=== PATIENT | male | born 1965 | race Caucasian/White ===

== ENCOUNTER 2016-09-07 | Emergency (ER) | payer OTHER | END 2016-09-07 15:50 | disposition left against medical advice (07) | DX: Z53.21 Procedure and treatment not carried out due to patient leaving prior to being seen by health care provider (principal) ==

== ENCOUNTER 2021-01-20 19:11 | Emergency (ER) | payer OTHER ==
--- OUTSIDE RECORDS SUMMARY | 2021-01-20 19:26 | EXTERNAL MEDICAL SUMMARY RPT | Continuity of Care Document ---
:1965 Demographics Phone Unavailable Preferred Language Unknown Marital Status Unknown Pentec[employer]ism Affiliation Unknown Race Unknown Ethnic Group Unknown Author Organization [place] Address [address] [place] [address] Phone Allergies Encounters Medications Problems Results
[2021-01-20 19:29] VITALS: BP 154/96
--- NOTE | 2021-01-20 19:58 | ED Physician Documentation ---
PD HPI HEAD INJURY - Stated complaint Stated Complaint: LIP LAC/INJ - Chief complaint Chief Complaint: Laceration - History obtained from History obtained from: Patient, Family - Additional information Additional information: He was playing around with his child and accidentally got head butted. He has a laceration on the inner lower lip. It was bleeding profusely but now better. He is up-to-date on tetanus. Review of Systems Constitutional: reports: Reviewed and negative Eyes: reports: Reviewed and negative Ears: reports: Reviewed and negative Nose: reports: Reviewed and negative Throat: reports: Reviewed and negative PD PAST MEDICAL HISTORY - Past Medical History Cardiovascular: Hypertension, High cholesterol Respiratory: None Endocrine/Autoimmune: Type 2 diabetes GI: GERD : None HEENT: None Psych: None Musculoskeletal: None Derm: Eczema - Past Surgical History Past Surgical History: Yes General: Other - Present Medications Home Medications: Ambulatory Orders Medication Instructions Recorded Confirmed Esomeprazole Magnesium [Nexium] 20 mg ORAL DAILY 08/09/15 08/09/15 Simvastatin 20 mg ORAL DAILY 08/09/15 08/09/15 lisinopriL [Lisinopril] 10 mg ORAL DAILY 08/09/15 08/09/15 metFORMIN [Glucophage] 500 mg ORAL BID 08/09/15 08/09/15 - Allergies Allergies/Adverse Reactions: Allergies Allergy/AdvReac Type Severity Reaction Status Date / Time Penicillins Allergy Rash Verified 01/20/21 19:29 - Social History Does the pt smoke?: No Smoking Status: Never smoker Does the pt drink ETOH?: No Does the pt have substance abuse?: No - Immunizations Immunizations are current?: Yes PD ED PE NORMAL - Vitals Vital signs reviewed: Yes - General General: Alert and oriented X 3, No acute distress - HEENT HEENT: Other (1 cm laceration of the mucosal surface of the inner lower lip. No loose teeth. No mandibular tenderness. Passes a "popsicle stick test.") - Neck Neck: Supple, no meningeal sign, No bony TTP - Neuro Neuro: Alert and oriented X 3, Normal speech Results - Vitals Vitals: Vital Signs - 24 hr 01/20/21 19:24 Temperature 36.7 C Heart Rate 97 Respiratory 18 Rate Blood Pressure 154/96 H O2 Saturation 97 Oxygen O2 Source Room air PD MEDICAL DECISION MAKING - ED course ED course: Recommended a single absorbable suture but he declined preferring dietary modification. I think will heal up fine regardless. Departure - Departure Disposition: 01 Home, Self Care Clinical Impression: Lip laceration Qualifiers: Encounter type: initial encounter Qualified Code(s): S01.511A - Laceration without foreign body of lip, initial encounter Condition: Good Record reviewed to determine appropriate education?: Yes Instructions: ED Laceration Mouth Comments: swish around water several times a day to clean and keep it clean. Return for new or worsening symptoms especially signs of infection which would include redness, swelling, drainage, increased pain.
== END 2021-01-20 20:02 | disposition home or self-care (01) ==
LOC: ED 19:11
DX: S01.511A Laceration without foreign body of lip, initial encounter (principal); W50.0XXA Accidental hit or strike by another person, initial encounter; Y93.89 Activity, other specified; I10 Essential (primary) hypertension; E11.9 Type 2 diabetes mellitus without complications; Z79.84 Long term (current) use of oral hypoglycemic drugs
CPT/HCPCS: 99281; 99282